=== PATIENT | female | born 1960 | race Caucasian/White ===

== ENCOUNTER 2016-12-03 22:53 | Emergency (ER) | payer MEDICAID, OTHER ==
[~2016-12-03] VITALS: Ht 165.1 cm; Wt 62.1 kg
[2016-12-03 22:55] VITALS: BP 110/69
== END 2016-12-03 23:36 | disposition left against medical advice (07) ==
LOC: ED 23:30
DX: R52 Pain, unspecified (principal); Z53.21 Procedure and treatment not carried out due to patient leaving prior to being seen by health care provider

== ENCOUNTER 2016-12-08 14:14 | Emergency (ER) | payer MEDICAID, OTHER ==
[~2016-12-08] VITALS: Ht 167.6 cm; Wt 59.5 kg
== END 2016-12-08 15:21 | disposition left against medical advice (07) ==
LOC: ED 15:15
DX: M25.532 Pain in left wrist (principal); M25.531 Pain in right wrist; Z53.21 Procedure and treatment not carried out due to patient leaving prior to being seen by health care provider

== ENCOUNTER 2016-12-08 16:47 | Emergency (ER) | payer MEDICAID ==
[~2016-12-08] VITALS: Ht 167.6 cm; Wt 59.4 kg
[2016-12-08 16:50] VITALS: BP 130/82
== END 2016-12-08 17:29 | disposition left against medical advice (07) ==
LOC: ED 17:23
DX: M79.601 Pain in right arm (principal); G89.29 Other chronic pain; Z90.49 Acquired absence of other specified parts of digestive tract
CPT/HCPCS: 99284

== ENCOUNTER 2016-12-30 10:06 | Emergency (ER) | payer MEDICAID ==
[~2016-12-30] VITALS: Ht 162.6 cm; Wt 60.1 kg
[2016-12-30 10:16] VITALS: BP 124/87
== END 2016-12-30 10:40 | disposition left against medical advice (07) ==
LOC: ED 10:36
DX: M54.2 Cervicalgia (principal); K14.6 Glossodynia; Z53.21 Procedure and treatment not carried out due to patient leaving prior to being seen by health care provider

== ENCOUNTER 2016-12-30 10:57 | Emergency (ER) | payer MEDICAID ==
[~2016-12-30] VITALS: Ht 162.6 cm; Wt 60.0 kg
[2016-12-30 11:27] VITALS: BP 125/77
== END 2016-12-30 11:47 | disposition left against medical advice (07) ==
LOC: ED 11:41
DX: Z00.00 Encounter for general adult medical examination without abnormal findings (principal); K14.6 Glossodynia; G89.29 Other chronic pain
CPT/HCPCS: 99283

== ENCOUNTER 2017-01-14 15:13 | Emergency (ER) | payer MEDICAID ==
[~2017-01-14] VITALS: Ht 165.1 cm; Wt 62.6 kg
[2017-01-14 15:18] VITALS: BP 142/92
[2017-01-14] MEDS ORDERED: SODIUM CHLORIDE FLUSH 10ML SYR IVF ONE (15:30)
[2017-01-14] MEDS ORDERED: ONDANSETRON 2MG/ML, 2ML IVPush ONE (15:30)
[2017-01-14] MEDS ORDERED: SODIUM CHLORIDE 0.9% 1,000ML IVBOLUS ONE (15:30)
[2017-01-14 15:48] LABS: HEMATOCRIT 45.2 % (34.6-47.8); HEMOGLOBIN 15.1 g/dL (11.7-16.4); WHITE BLOOD COUNT 5.5 x10^3/uL (3.4-10)
[2017-01-14 16:00] LABS: BLOOD UREA NITROGEN 20 mg/dL (7-18)
[2017-01-14 16:04] LABS: IS PT STATUS REG ER OR PRE ER? YES
== END 2017-01-14 17:24 | disposition home or self-care (01) ==
LOC: ED 16:48
DX: R55 Syncope and collapse (principal); Z90.49 Acquired absence of other specified parts of digestive tract; F17.200 Nicotine dependence, unspecified, uncomplicated; Z59.0 Homelessness; M54.9 Dorsalgia, unspecified; G89.29 Other chronic pain
CPT/HCPCS: 36415; 71010; 80048; 82040; 84484; 85025; 93005; 99285

== ENCOUNTER 2017-04-12 18:04 | Emergency (ER) | payer MEDICAID ==
[~2017-04-12] VITALS: Ht 165.1 cm; Wt 60.0 kg
[2017-04-12 18:06] VITALS: BP 154/94
== END 2017-04-12 18:36 | disposition left against medical advice (07) ==
LOC: ED 18:20
DX: M79.641 Pain in right hand (principal); Z53.21 Procedure and treatment not carried out due to patient leaving prior to being seen by health care provider

== ENCOUNTER 2017-04-21 03:58 | Emergency (ER) | payer MEDICAID ==
[~2017-04-21] VITALS: Ht 165.1 cm; Wt 60.0 kg
[2017-04-21 04:02] VITALS: BP 138/93
== END 2017-04-21 04:21 | disposition left against medical advice (07) ==
LOC: ED 04:15
DX: R05 Cough (principal); Z53.21 Procedure and treatment not carried out due to patient leaving prior to being seen by health care provider

== ENCOUNTER 2017-07-01 09:48 | Emergency (ER) | payer MEDICAID ==
[~2017-07-01] VITALS: Ht 167.6 cm; Wt 63.8 kg
[2017-07-01 09:55] VITALS: BP 111/71
== END 2017-07-01 11:04 | disposition home or self-care (01) ==
LOC: ED 10:58
DX: S80.12XA Contusion of left lower leg, initial encounter (principal); I10 Essential (primary) hypertension; F32.9 Major depressive disorder, single episode, unspecified; Z90.49 Acquired absence of other specified parts of digestive tract; W50.1XXA Accidental kick by another person, initial encounter; Y93.89 Activity, other specified; Y99.8 Other external cause status; Y92.89 Other specified places as the place of occurrence of the external cause
CPT/HCPCS: 99284

== ENCOUNTER 2017-07-14 00:59 | Emergency (ER) | payer MEDICAID | END 2017-07-14 01:10 | disposition left against medical advice (07) | LOC: ED 01:06 | DX: M79.672 Pain in left foot (principal); M79.671 Pain in right foot; Z53.21 Procedure and treatment not carried out due to patient leaving prior to being seen by health care provider ==

== ENCOUNTER 2017-10-29 07:50 | Emergency (ER) | payer MEDICAID ==
[~2017-10-29] VITALS: Ht 167.6 cm; Wt 63.0 kg
[2017-10-29 07:58] VITALS: BP 154/104
== END 2017-10-29 08:49 | disposition left against medical advice (07) ==
LOC: ED 08:20
DX: R11.0 Nausea (principal); G89.29 Other chronic pain; I10 Essential (primary) hypertension
CPT/HCPCS: 99281

== ENCOUNTER 2017-11-12 23:37 | Emergency (ER) | payer MEDICAID | END 2017-11-12 23:47 | disposition left against medical advice (07) | LOC: ED 23:41 | DX: Z53.21 Procedure and treatment not carried out due to patient leaving prior to being seen by health care provider (principal) ==

== ENCOUNTER 2017-12-13 14:06 | Emergency (ER) | payer MEDICAID ==
[~2017-12-13] VITALS: Ht 165.1 cm; Wt 67.3 kg
[2017-12-13 14:08] VITALS: BP 119/84
== END 2017-12-13 15:22 | disposition home or self-care (01) ==
LOC: ED 15:16
DX: G89.29 Other chronic pain (principal); M79.672 Pain in left foot; M79.671 Pain in right foot; F22 Delusional disorders; M54.9 Dorsalgia, unspecified
CPT/HCPCS: 99281

== ENCOUNTER 2018-01-13 22:47 | Emergency (ER) | payer MEDICAID ==
[~2018-01-13] VITALS: Ht 165.1 cm; Wt 63.8 kg
[2018-01-13 22:48] VITALS: BP 150/100
== END 2018-01-13 23:01 | disposition left against medical advice (07) ==
LOC: ED 22:55
DX: Z53.21 Procedure and treatment not carried out due to patient leaving prior to being seen by health care provider (principal)

== ENCOUNTER 2018-07-19 21:17 | Emergency (ER) | payer MEDICAID ==
[~2018-07-19] VITALS: Ht 167.6 cm; Wt 66.0 kg
[2018-07-19 21:23] VITALS: BP 147/87
[2018-07-19] MEDS ORDERED: DIPH,PERTUSS(ACELL),TET VAC/PF 0.5 ML IM-VACC ONE ×2 (21:52→22:00)
[2018-07-19] MEDS ORDERED: LIDOCAINE-MPF 1%, 5ML ONE (21:52)
[2018-07-19] MEDS ORDERED: LIDOCAINE-MPF 1%, 5ML INFIL ONE (22:00)
--- NOTE | 2018-07-19 22:16 | NUR ---
I/D PERFROMED BY PA TO INDEX FINGER ON RIGHT HAND. PACKING TO RIGHT FINGER NAIL BED. DRESSING APPLIED. PT INSTRUCTED TO COME BACK IN 2 DAYS FOR PACKING REMOVAL.
--- NOTE | 2018-07-19 22:35 | NUR ---
Patient/Caregiver given discharge instructions and they have confirmed that they understand the instructions. Patient ambulatory with steady gait.
== END 2018-07-19 22:38 | disposition home or self-care (01) ==
LOC: ED 22:15
DX: L02.511 Cutaneous abscess of right hand (principal); Z72.9 Problem related to lifestyle, unspecified; M79.641 Pain in right hand; F17.210 Nicotine dependence, cigarettes, uncomplicated
CPT/HCPCS: 10060; 90471; 90715

== ENCOUNTER 2018-10-13 21:18 | Emergency (ER) | payer MEDICAID | END 2018-10-13 21:29 | disposition left against medical advice (07) | LOC: ED 21:23 | DX: R06.02 Shortness of breath (principal); Z53.21 Procedure and treatment not carried out due to patient leaving prior to being seen by health care provider ==

== ENCOUNTER 2018-11-09 14:50 | Emergency (ER) | payer MEDICAID ==
[~2018-11-09] VITALS: Ht 167.6 cm; Wt 71.0 kg
[2018-11-09 17:09] VITALS: BP 118/72
== END 2018-11-09 17:11 | disposition home or self-care (01) ==
LOC: ED 17:05
DX: M79.18 Myalgia, other site (principal); F10.129 Alcohol abuse with intoxication, unspecified; I10 Essential (primary) hypertension; F32.9 Major depressive disorder, single episode, unspecified
CPT/HCPCS: 36415; 80053; 80307; 82550; 84439; 84443; 85025; 99283

== ENCOUNTER 2019-03-04 11:48 | Emergency (ER) | payer MEDICAID ==
[~2019-03-04] VITALS: Ht 165.1 cm; Wt 74.3 kg
[2019-03-04 11:53] VITALS: BP 120/75
== END 2019-03-04 12:05 | disposition left against medical advice (07) ==
LOC: ED 11:58
DX: M79.669 Pain in unspecified lower leg (principal); Z53.21 Procedure and treatment not carried out due to patient leaving prior to being seen by health care provider

== ENCOUNTER 2019-03-08 13:57 | Emergency (ER) | payer MEDICAID ==
[~2019-03-08] VITALS: Ht 165.1 cm; Wt 73.4 kg
[2019-03-08 14:15] VITALS: BP 127/79
--- NOTE | 2019-03-08 14:24 | NUR ---
PT TRIAGED, I TOLD THE PT I WAS GOING TO LEAVE TO CHECK ON AVAILABLE ROOM PT VERBALIZED TO ME "I NEED A NEUROLOGIST" SHE GOT UP OUT OF THE CHAIR AND WALKED OUT OF THE ROOM AND OUT OF THE HOSPITAL. UPRIGHT STEADY GAIT.
== END 2019-03-08 14:29 | disposition left against medical advice (07) ==
LOC: ED 14:23
DX: M25.561 Pain in right knee (principal); M25.562 Pain in left knee; Z53.21 Procedure and treatment not carried out due to patient leaving prior to being seen by health care provider

== ENCOUNTER 2019-03-27 08:54 | Emergency (ER) | payer MEDICAID ==
[~2019-03-27] VITALS: Ht 167.6 cm; Wt 69.0 kg
[2019-03-27 09:04] VITALS: BP 137/91
--- NOTE | 2019-03-27 09:14 | NUR ---
pt denies being able to stand, but proceded to walk out of triage with steady gait while stating, "i need to use the bathroom. i need to check my car." pt educated that she will not be able to go to room if she leaves at this time and there are restrooms on the way to her room. pt declined to stay.
== END 2019-03-27 09:16 | disposition left against medical advice (07) ==
LOC: ED 09:10
DX: M79.661 Pain in right lower leg (principal); Z53.21 Procedure and treatment not carried out due to patient leaving prior to being seen by health care provider

== ENCOUNTER 2019-03-28 15:40 | Emergency (ER) | payer MEDICAID ==
[~2019-03-28] VITALS: Ht 167.6 cm; Wt 73.2 kg
[2019-03-28 15:52] VITALS: BP 115/77
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
[2019-03-28] MEDS ORDERED: ACETAMINOPHEN 325 MG TABLET ONE (16:42)
[2019-03-28] MEDS ORDERED: KETOROLAC 30 MG/1 ML ONE (16:42)
--- NOTE | 2019-03-28 16:52 | NUR ---
PT REFUSING PAIN MEDICATION AT THIS TIME.
[2019-03-28] MEDS ORDERED: KETOROLAC 30 MG/1 ML IM ONE (17:00)
[2019-03-28] MEDS ORDERED: ACETAMINOPHEN 325 MG TABLET PO ONE (17:00)
--- NOTE | 2019-03-28 17:32 | NUR ---
PT UPSET SHE DID NOT GET "SOMETHING STRONGER THAN TYLENOL" WHILE IN ED. PT ALSO UPSET SHE DID NOT GET PO MORPHINE RX W/ DC PAPERWORK STATING "YOUR NAPROXEN CAN STUFF IT". PT REFUSING TO LEAVE ED. PT ESCORTED OFF PREMISES BY SECURITY.
== END 2019-03-28 17:35 | disposition home or self-care (01) ==
LOC: ED 17:29
DX: S82.124A Nondisplaced fracture of lateral condyle of right tibia, initial encounter for closed fracture (principal); I10 Essential (primary) hypertension; W18.30XA Fall on same level, unspecified, initial encounter; Y93.89 Activity, other specified; Y92.410 Unspecified street and highway as the place of occurrence of the external cause; Y99.8 Other external cause status
CPT/HCPCS: 99284

== ENCOUNTER 2019-03-29 14:00 | Emergency (ER) | payer MEDICAID ==
[~2019-03-29] VITALS: Ht 167.6 cm; Wt 76.3 kg
[2019-03-29 14:36] VITALS: BP 113/73
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
--- NOTE | 2019-03-29 14:47 | NUR ---
PT AMBULATORY UP TO RN STATION. PT STATES, "IF YOU FIND ANY NARCOTICS, LET ME KNOW. HOW DO I GET OUT OF HERE? I WANT TO LEAVE. I AIN'T NO FELON." PT AMBULATORY C A STEADY GAIT. NOTIFIED PT THAT HER CARE WAS NOT COMPLETE AND THAT THE MD HAD NOT PUT HER UP FOR DISCHARGE. PT CONTINUED TO ASK TO BE POINTED TO THE EXIT. PT EXITED THE DEPARTMENT C STEADY GAIT.
== END 2019-03-29 14:50 | disposition left against medical advice (07) ==
LOC: ED 14:39
DX: S82.124A Nondisplaced fracture of lateral condyle of right tibia, initial encounter for closed fracture (principal); W18.30XA Fall on same level, unspecified, initial encounter; Y93.89 Activity, other specified; Y92.89 Other specified places as the place of occurrence of the external cause; Y99.8 Other external cause status
CPT/HCPCS: 99283

== ENCOUNTER 2019-07-20 00:20 | Emergency (ER) | payer MEDICAID ==
[~2019-07-20] VITALS: Ht 165.1 cm; Wt 74.1 kg
[2019-07-20 00:25] VITALS: BP 121/69
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
--- NOTE | 2019-07-20 00:34 | NUR ---
High fall precautions in place, both side rails up.
--- NOTE | 2019-07-20 01:32 | NUR ---
PT SLEEPING ON GURNEY, EVEN UNLABORED RESPIRATIONS. SAFETY PRECAUTIONS IN PLACE.
[2019-07-20] MEDS ORDERED: IBUPROFEN 600 MG TABLET ONE (01:58)
[2019-07-20] MEDS ORDERED: IBUPROFEN 600 MG TABLET PO ONE (02:00)
--- NOTE | 2019-07-20 02:05 | NUR ---
PT IS AGITATED AND YELLING AT THIS RN AFTER TAKING IBUPROFEN. SECURITY CALLED TO ESCORT PT.
== END 2019-07-20 02:19 | disposition home or self-care (01) ==
LOC: ED 01:03
DX: M25.571 Pain in right ankle and joints of right foot (principal); I10 Essential (primary) hypertension; F17.200 Nicotine dependence, unspecified, uncomplicated; Z90.49 Acquired absence of other specified parts of digestive tract; W19.XXXA Unspecified fall, initial encounter; Y93.89 Activity, other specified; Y92.89 Other specified places as the place of occurrence of the external cause; Y99.8 Other external cause status
CPT/HCPCS: 99284

== ENCOUNTER 2019-07-26 18:38 | Emergency (ER) | payer MEDICAID ==
[~2019-07-26] VITALS: Ht 167.6 cm; Wt 75.0 kg
--- NOTE | 2019-07-26 18:43 | NUR ---
PT IN LAVATORY AT THIS TIME.
--- NOTE | 2019-07-26 19:01 | NUR ---
After being triaged pt refused care and walked out triage room. "i dont need you fuckers help."
== END 2019-07-26 19:02 | disposition left against medical advice (07) ==
LOC: ED 18:55
DX: M79.604 Pain in right leg (principal); Z53.21 Procedure and treatment not carried out due to patient leaving prior to being seen by health care provider

== ENCOUNTER 2020-08-06 18:43 | Emergency (ER) | payer MEDICAID ==
[~2020-08-06] VITALS: Ht 167.6 cm; Wt 73.2 kg
[2020-08-06 20:53] VITALS: BP 120/81
--- NOTE | 2020-08-06 20:56 | NUR ---
RE[facility]ITALS [id number]
--- NOTE | 2020-08-06 21:54 | NUR ---
NIL X 1
--- NOTE | 2020-08-06 22:10 | NUR ---
NIL X 3
== END 2020-08-06 22:12 | disposition left against medical advice (07) ==
LOC: ED 19:13
DX: H57.89 Other specified disorders of eye and adnexa (principal)
CPT/HCPCS: 99282

== ENCOUNTER 2020-09-28 12:37 | Emergency (ER) | payer MEDICAID ==
[~2020-09-28] VITALS: Ht 167.6 cm; Wt 71.4 kg
[2020-09-28 13:09] VITALS: BP 155/80
--- NOTE | 2020-09-28 13:54 | NUR ---
NO ANSWER X 1
--- NOTE | 2020-09-28 14:12 | NUR ---
NA X2
--- NOTE | 2020-09-28 14:23 | NUR ---
NA X3
== END 2020-09-28 14:47 | disposition left against medical advice (07) ==
LOC: ED 14:41
DX: Z53.21 Procedure and treatment not carried out due to patient leaving prior to being seen by health care provider (principal)

== ENCOUNTER 2020-10-09 15:00 | Emergency (ER) | payer MEDICAID ==
[~2020-10-09] VITALS: Ht 167.6 cm; Wt 72.4 kg
[2020-10-09 15:01] VITALS: BP 120/86
[2020-10-09] MEDS ORDERED: FLUORESCEIN OPHTHALMIC 1 MG STRIP ONE (15:40)
[2020-10-09] MEDS ORDERED: PROPARACAINE OPHTH 0.5%, 15ML ONE (15:40)
--- NOTE | 2020-10-09 15:42 | NUR ---
pt presents to ED with c/o eye pain x 5 months, pt denies trauma or known foreign body. pt is a&o, resps even and unlabored. pt exhibits delusional behavior, states "I suffer from beautiful eye disease". denies substance abuse. pupils equal, round and reactive. VAs taken in triage. reviewed by KATT Mcwilliams MD at bedside for eye exam.
--- NOTE | 2020-10-09 16:29 | NUR ---
PT SEEN AND EXAMINED BY KATT FINN, PT HAS LEFT DEPARTMENT BEFORE RECEIVING PRESCRIPTION AND DISCHARGE INSTRUCTIONS.
== END 2020-10-09 16:31 | disposition home or self-care (01) ==
LOC: ED 16:20
DX: H10.023 Other mucopurulent conjunctivitis, bilateral (principal); I10 Essential (primary) hypertension; Z90.49 Acquired absence of other specified parts of digestive tract; Z87.891 Personal history of nicotine dependence
CPT/HCPCS: 99283